=== PATIENT | male | born 1965 | race Two or more races ===

== ENCOUNTER 2024-04-09 18:29 | Emergency (ER) | payer OTHER, SELFPAY ==
--- NOTE | ~2024-04-09 | CT_ITS ---
CLINICAL HISTORY: R flank pain CT abdomen and pelvis without contrast Comparison: None available Findings: No consolidation in the imaged lung bases. Mild right hydroureteronephrosis with 0.8 cm stone in the lower portion of the right kidney. Adjacent calcifications of the additional calcifications in the pelvis are favored to be vascular. No left-sided hydronephrosis accounting for parapelvic cysts. Bilateral perinephric stranding is nonspecific, right worse than left. Cystic lesions of the kidneys are not further characterize without intravenous contrast. Mild adrenal hyperplasia. Gallbladder and solid abdominal organs are otherwise unremarkable as this is a noncontrast CT. No small bowel obstruction. Right inguinal hernia contains fat, mesentery, fluid, and 10 cm small intestine. Left inguinal hernia contains fat and mesentery. Imaged appendix is gas-filled and measures at the upper limits of normal. Moderate wall thickening of the urinary bladder is nonspecific. Prostate gland is unremarkable for noncontrast CT. [id number] osteoarthritis of the hips, right worse than left. Mild pelvis deformities appear old chronic. Vacuum disc phenomenon includes L4-L5 with endplate remodeling multifocal sclerosis. Facet arthropathy is also multifocal. IMPRESSION: 1. 0.8 cm stone in the lower portion of the right ureter with mild right hydroureteronephrosis. 2. Right inguinal hernia contains small intestine without resulting small bowel obstruction at this time. 3. Nonspecific wall thickening of the urinary bladder. This document has been electronically signed by: Quang Sun MD on 04/10/2024 01:16:27
[2024-04-09 19:26] VITALS: BP 145/110; PULSE 80; RESP 20; TEMP 36.2; O2SAT 98; BMI 27.3
--- NOTE | 2024-04-09 19:27 | ED.ABDPAIN ---
HPI - Abdominal Pain General Chief Complaint: Abdominal Pain Stated Complaint: abd pain Time Seen by Provider: 04/10/24 00:07 Source: patient Mode of arrival: ambulatory Limitations: no limitations History of Present Illness ED Provider: EMELY GORDON narrative: 58 yo male with PMH of prior L hernia repair who presents with c/o dark urine x 1 last week and now R flank pain x 5 days that goes to RLQ it is on and off he takes motrin or tylenol and it feels better. No n/v/d, no fevers. He notes no trauma. He has no pain right now. He is able to urinate without issue. MD elicited complaint: flank pain Onset (ago): day(s) (5) Pain Consistency: intermittent Location: RLQ and R flank Severity: moderate Quality: aching Radiation: none Migration to: no migration Exacerbating factors: nothing Relieving factors: nothing Context: other Associated symptoms: hematuria (possible last week ) Treatments prior to arrival: NSAIDs Related Data Previous Rx's ?Medication ?Instructions ?Recorded cefuroxime axetil 500 mg tablet 500 mg PO BID 7 days #14 tabs 04/10/24 morphine 15 mg immediate release 15 mg PO QID PRN pain #10 tabs 04/10/24 tablet ondansetron 4 mg disintegrating 4 mg PO Q8H PRN nausea and 04/10/24 tablet vomiting #20 tabs tamsulosin 0.4 mg capsule 0.4 mg PO DAILY 7 days #7 caps 04/10/24 Allergies Allergy/AdvReac Type Severity Reaction Status Date / Time No Known Allergies Allergy Verified 04/09/24 19:29 Review of Systems Review of Systems Constitutional : No Weight loss, No Fever, No Chills ENT/Mouth : No sore throat, No Rhinorrhea Eyes: No Swelling, No Redness Cardiovascular : No Chest Pain, No SOB Respiratory : No Cough, No Sputum, No Wheezing Gastrointestinal : no Nausea, no Vomiting, no Diarrhea, positive abdominal Pain, No Hematochezia, No Melena Genitourinary : No Dysuria, No Urinary Frequency, No Hematuria, No Urgency, dark urine last week Musculoskeletal : No joint pain, No Myalgias, No Joint Swelling Skin : No Skin Lesions, No rash Neuro : No Weakness, No Numbness, No Dizziness, No Headache Psych : No Anxiety/Panic, No Depression Heme/Lymph: No Bruising, No Lymphadenopathy Endocrine : No Polyuria, No Polydipsia All other systems reviewed and are negative. [facility] Past Medical History Attestation statement: The following information was validated with the patient. Source: old records reviewed Surgical History (Updated 04/10/24 @ 00:42 by Susan Otero DO) H/O hernia repair Social History Social History (Updated 04/10/24 @ 00:42 by Susan Otero DO) Patient Tobacco Use Status: Tobacco use Unknown Advance Directives: No Advance Directives Information Provided: Yes Physical Exam ED Vital Signs: Vital Signs - 24 hr 04/09/24 19:26 Temperature 97.2 F Pulse Rate 80 Respiratory Rate 20 Blood Pressure 145/110 H Pulse Oximetry 98 Oxygen Delivery Method Room Air BMI result Body Mass Index 27.3 Appearance: Alert. Oriented X3. No acute distress. Eyes: Pupils equal, round and reactive to light. ENT: Pharynx normal. Neck: Normal inspection. Neck supple. CVS: Normal heart rate and rhythm. Pulses normal. Respiratory: No respiratory distress. Breath sounds normal. Abdomen: Soft and non-tender. no mass felt Skin: Skin warm and dry. Normal skin color. Normal skin turgor. Extremities: No lower extremity edema. Neuro: Oriented X 3. No motor deficit. No sensory deficit. CN2-12 intact Course Course Course Narrative: This is an RME: Additional HPI, ROS, PE not included below will be deferred to primary provider. RME assessment and note performed by: Melonie Marte PA-C This is a [id number]-usw-male, with no known medical problems, who presents to the ER with complaints of RLQ pain x 5 days. No fevers, chills, nausea, vomiting, diarrhea or constipation. Taking ibuprofen and tylenol with some relief. Reports that last week urine was dark like coca cola last week with pain > this has resolved. Plan: Labs, UA Medical Decision Making Medical Decision Making MDM Narrative: 58 yo male with hx of hernia repair here with c/o R flank pain and some dark urine last week - no n/v/d, no fevers, no issues urinating. He will get labs, UA, CT scan for possible renal colic, abominal exam is benign Differential Diagnosis Differential Diagnoses: The differential diagnosis associated with the presentation includes renal colic, constipation, diverticulitis Admission/Observation Consideration of admission/observation: Escalation of care including admission/observation considered no pain no vomiting here can be followed as outpatient will start on abx, pain medications, notify Urology of outpatient close follow up needs Consult Healthcare Provider Management of the patient was discussed with: Supplier Diversity Director Lab Data [facility] Lab Attestation statement: I reviewed the patient's lab results. 04/09/24 20:28 04/09/24 20:28 Labs: Lab Results 04/09/24 04/10/24 Range/Units 20:28 00:49 WBC 12.2 H (4.8-10.8) X10*3/uL RBC 4.82 (4.60-5.80) X10*6/uL Hgb 15.3 (14.0-18.0) g/dl Hct 45.2 (42.0-52.0) % MCV 93.8 (80.0-98.0) fL MCH 31.7 (27.0-33.0) pg MCHC 33.8 (31.0-36.0) g/dl RDW 13.2 (11.0-16.0) % Plt Count 274 (160-400) X10*3/uL MPV 9.0 L (9.4-12.4) fL Immature Gran % (Auto) 0.3 (0.0-0.4) % Neut % (Auto) 68.3 (45-73) % Lymph % (Auto) 22.6 (20-40) % [place] % (Auto) 7.5 (2-11) % Eos % (Auto) 1.0 (0-4) % Baso % (Auto) 0.3 (0-2) % Lymph # (Auto) 2.8 (1.2-4.9) X10*3/uL [place] # (Auto) 0.9 (0.1-1.2) X10*3/uL Eos # (Auto) 0.1 (0.0-0.4) X10*3/uL Baso # (Auto) 0.0 (0.0-0.2) X10*3/uL Abs Immat Gran (auto) 0.04 H (0.00-0.03) X10*3/uL Absolute Neuts (auto) 8.3 (2.0-8.3) x10*3/uL Absolute Nucleated RBC 0.000 (0.0-0.012) X10*3/uL Nucleated RBC % (auto) 0.0 (0.0-0.2) /100WBC Sodium 139 (135-145) mmol/L Potassium 4.4 (3.3-5.1) mmol/L Chloride 106 (96-108) mmol/L Carbon Dioxide 25 (22-29) mmol/L Anion Gap 12 (12-20) BUN 21 H (9-16) mg/dL Creatinine 1.27 (0.5-1.4) mg/dL Estim Creat Clear Calc 63.4 Estimated GFR 58 Random Glucose 100 (60-115) mg/dL Calcium 9.8 (8.4-10.2) mg/dL Total Bilirubin 0.3 (0.0-1.0) mg/dL Direct Bilirubin 0.1 (0.0-0.5) mg/dL AST 24 (5-37) U/L ALT 29 (0-40) U/L Alkaline Phosphatase 75 (39-117) U/L Total Protein 7.9 (6.5-8.0) g/dL Albumin 4.3 (3.5-5.0) g/dL Lipase 28 (8-78) U/L Urine Color Yellow Urine Appearance Clear Urine pH 5.0 (5.0-9.0) Ur Specific [place] 1.020 (1.005-1.025) Urine Protein Negative (Neg-Trace) mg/dL Urine Glucose (UA) Negative (Negative) mg/dL Urine Ketones Negative (Negative) mg/dL Urine Blood Small (1+) H (Negative) Urine Nitrite Negative (Negative) Ur Leukocyte Esterase Small (1+) H (Negative) Urine RBC 0-2 (0-2) /HPF Urine WBC 6-10 H (0-5) /HPF Ur Squamous Epith Cells 0-2 (0-2) /HPF Urine Bacteria None Seen (None Seen) Hyaline Casts 3-5 (0-2) /LPF Independent Interpretation I performed an independent interpretation of an: CT Scan (distal R uterer 8mm stone) Radiology Impression Discussion of test interpretation with radiology: I have reviewed the radiologist's reading. External Record Review External record reviewed: Outpatient record Prescription Management I considered prescription management with: Pain Medication, Antibiotic and Other Discharge Plan Discharge Clinical Impression: Acute right flank pain, Ureterolithiasis Patient Disposition: Home, Self-Care Instructions: Ureteral Stones (ED) Additional Instructions: return for fevers, vomiting, unable to eat or drink, severe pain or any other concerns urology office will call you to schedule appointment stay hydrated Prescriptions: New tamsulosin 0.4 mg capsule 0.4 mg PO DAILY 7 Days Qty: 7 0RF cefuroxime axetil 500 mg tablet 500 mg PO BID 7 Days Qty: 14 0RF morphine 15 mg tablet 15 mg PO QID PRN (Reason: pain) Qty: 10 0RF Rx Instructions: partial fill okay; Partial Fill upon patient request. ondansetron 4 mg tablet,disintegrating 4 mg PO Q8H PRN (Reason: nausea and vomiting) Qty: 20 0RF Referrals: [facility] [place] [facility] [Provider Group] Stand Alone Forms: Work/School Release Print Language: Greenlandic
[2024-04-09 20:32] LABS: MANUAL DIFF FLAG NO
[2024-04-09 20:34] LABS: Basophils Percent Auto 0.3 % (0-2); Eosinophils Absolute Auto 0.1 X10*3/uL (0.0-0.4); Hematocrit 45.2 % (42.0-52.0); Hemoglobin 15.3 g/dl (14.0-18.0); Imm Gran Abs Auto 0.04 X10*3/uL (0.00-0.03); Imm Gran Pct Auto 0.3 % (0.0-0.4); Lymphocytes Absolute Auto 2.8 X10*3/uL (1.2-4.9); Lymphocytes Percent Auto 22.6 % (20-40); Mean Corpuscular HGB Conc 33.8 g/dl (31.0-36.0); Mean Corpuscular Hemoglobin 31.7 pg (27.0-33.0); Mean Corpuscular Volume 93.8 fL (80.0-98.0); Monocytes Absolute Auto 0.9 X10*3/uL (0.1-1.2); Monocytes Percent Auto 7.5 % (2-11); Neutrophils Absolute Auto 8.3 x10*3/uL (2.0-8.3); Neutrophils Percent Auto 68.3 % (45-73); Platelet Count 274 X10*3/uL (160-400); Red Blood Count 4.82 X10*6/uL (4.60-5.80); Red Cell Distribution Width 13.2 % (11.0-16.0); White Blood Count 12.2 X10*3/uL (4.8-10.8)
[2024-04-09 20:52] LABS: Alanine Aminotransferase 29 U/L (0-40); Albumin Level 4.3 g/dL (3.5-5.0); Alkaline Phosphatase 75 U/L (39-117); Anion Gap 12 (12-20); Aspartate Amino Transferase 24 U/L (5-37); Bilirubin Direct 0.1 mg/dL (0.0-0.5); Bilirubin Total 0.3 mg/dL (0.0-1.0); Blood Urea Nitrogen 21 mg/dL (9-16); Calcium 9.8 mg/dL (8.4-10.2); Carbon Dioxide 25 mmol/L (22-29); Chloride 106 mmol/L (96-108); Creatinine Clr Calc Pharmacy 63.4; Estimated Glomerular Filt Rate 58; Glucose Random 100 mg/dL (60-115); Lipase 28 U/L (8-78); Potassium 4.4 mmol/L (3.3-5.1); Sodium 139 mmol/L (135-145); Total Protein 7.9 g/dL (6.5-8.0)
[2024-04-10 00:54] LABS: Appearance Urine Clear; Color Urine Yellow; Glucose Urine UA Negative (Negative); Leukocyte Esterase Urine Small (1+) (Negative); Nitrite Urine Negative (Negative); UMIC TRIGGER UACC YES; Urine Blood Small (1+) (Negative); Urine Ketones Negative (Negative); Urine Protein Negative (Neg-Trace)
[2024-04-10 01:02] LABS: Bacteria Urine None Seen (None Seen); RBC Urine 0-2 /HPF (0-2); Squamous Epithelial Cell Urine 0-2 /HPF (0-2); UACC Culture Trigger YES
[2024-04-10 02:23] VITALS: BP 143/92; PULSE 65; RESP 14; TEMP 36.6; O2SAT 98
[2024-04-10 02:24] VITALS: BP 143/92; PULSE 64; RESP 14; TEMP 36.6; O2SAT 98
== END 2024-04-10 02:25 | disposition home or self-care (01) ==
PROVIDERS: Physician Assistant Medical; Emergency Provider Emergency Medicine; PCP Internal Medicine
DX: N20.1 Calculus of ureter (principal); R10.2 Pelvic and perineal pain; R10.31 Right lower quadrant pain; Z79.899 Other long term (current) drug therapy
CPT/HCPCS: 36415; 74176; 80048; 80076; 81001; 83690; 85025; 87086; 87147; 99283; 99284

== ENCOUNTER → 2024-04-10 00:08 | Outpatient (BNV) | payer OTHER, SELFPAY | PROVIDERS: Emergency Provider Emergency Medicine; PCP Internal Medicine; Visit Provider Radiology Neuroradiology | DX: N20.1 Calculus of ureter (principal); K40.90 Unilateral inguinal hernia, without obstruction or gangrene, not specified as recurrent; N32.89 Other specified disorders of bladder | CPT/HCPCS: 74176 ==

== ENCOUNTER 2024-04-12 14:12 | Outpatient (AMB) | payer OTHER, SELFPAY ==
--- NOTE | 2024-04-12 14:30 | A.OFFVIS_ITS ---
Intake Visit Reasons: right distal ureteric stone Intake Note: Patient is present for Ureteric Stone Urology Med: Tamsulosin Antibiotic Allergy: None Blood Thinner: Allergies No Known Allergies Allergy (Verified 04/09/24 19:29) PFSH Surgical History (Updated 04/10/24 @ 00:42 by Susan Otero DO) H/O hernia repair Social History (Updated 04/10/24 @ 00:42 by Susan Otero DO) Patient Tobacco Use Status: Tobacco use Unknown Results AMB Urinalysis, Automated UA Leukoctes 0 Arley/uL Last Edit by [facility] on 04/12/24 14:44 UA Nitrite Negative Last Edit by Gabriella Rivera A on 04/12/24 14:44 UA Urobilinogen 0.2 mg/dL Last Edit by [facility] on 04/12/24 14:4 4 UA Protein 15 mg/dL Last Edit by [facility] on 04/12/24 14:44 UA pH 5.5 Last Edit by [facility] on 04/12/24 14:44 UA Blood 0 [place]/uL Last Edit by [facility] on 04/12/24 14:44 UA Specific [place] 1.025 Last Edit by [facility] on 04/12/24 14: 44 UA Ketone Negative Last Edit by [facility] on 04/12/24 14:44 UA Bilirubin 0 mg/dL Last Edit by [facility] on 04/12/24 14:44 UA Glucose 0 mg/dL Last Edit by [facility] on 04/12/24 14:44 Assessment & Plan Assessment & Plan Orders: Orders AMB Urinalysis Automated Today Z13.9 - Encounter for screening, unspecified Coding
== END 2024-04-12 14:59 | disposition home or self-care (01) ==
PROVIDERS: PCP Internal Medicine; Visit Provider Urology
DX: Z13.9 Encounter for screening, unspecified (principal)

== ENCOUNTER → 2024-04-12 14:12 | Outpatient (BNVA) | payer OTHER, SELFPAY | PROVIDERS: PCP Internal Medicine; Visit Provider Urology | DX: N20.1 Calculus of ureter (principal); N13.30 Unspecified hydronephrosis | CPT/HCPCS: 81003; 99202 ==